=== PATIENT | female | born 1990 | race Caucasian/White ===

== ENCOUNTER 2022-03-04 10:18 | Outpatient (CLI) | payer MEDICAID, SELFPAY ==
--- NOTE | 2022-03-04 10:30 | CRLHL7_ITS ---
For Patients: As a result of the 21st Century Cures Act, medical imaging exams and procedure reports are released immediately into your electronic medical record. You may view this report before your referring provider. If you have questions, please contact your health care provider. SOLID PHASE GASTRIC EMPTYING STUDY, 03/04/2022 CLINICAL HISTORY: 32-year-old female. Food retention in stomach. Abdominal pain and nausea. Vomiting. Diffuse tenderness. Evaluate gastric emptying. TECHNIQUE: 1.1 mCi of [id number] colloid was administered orally in a meal of 4 ounces of Egg Beaters with two slices of breast with two tablespoons of strawberry jam and 4 ounces of juice or water. Images of the stomach and abdomen were obtained in the anterior and posterior projections for 4 hours. FINDINGS: TIME % ACTIVITY REMAINING 0 minutes 100.0 60 minutes 98.5 90 minutes 98.0 120 minutes 97.9 240 minutes 86.1 IMPRESSION: The half-time of gastric emptying is longer than 4 hours. This is delayed. NIDIA DUMONT M.D. Transcribed: 3:42 p.m. [email or web address]/Dictated by: Nidia Dumont MD @ 03/04/2022 2:48:00 PM (Electronically Signed)
== END 2022-03-04 10:19 | disposition home or self-care (01) ==
PROVIDERS: PCP Family Medicine
DX: K31.89 Other diseases of stomach and duodenum (principal)
CPT/HCPCS: 78264; A9541

== ENCOUNTER 2022-03-19 20:22 | Emergency (ER) | payer MEDICAID, SELFPAY ==
[2022-03-19 20:27] VITALS: BP 120/84; PULSE 95; RESP 18; TEMP 37.6; O2SAT 100; BMI 22.7
[2022-03-19 20:46] LABS: Appearance Urine Slightly Cloudy (Clear); Bilirubin Urine 1+ (Negative); Blood Urine Negative (Negative); Color Urine Yellow (Yellow); Glucose Urine Negative (Negative); Ketones Urine Negative (Negative); Leukocyte Esterase Urine Negative (Negative); Nitrite Urine Negative (Negative); Protein Urine Negative (Negative); Specific Gravity Urine >= 1.030 (1.000-1.030)
[2022-03-19 21:16] LABS: Squamous Epithelial Cell Urine Moderate (None-Few)
--- NOTE | 2022-03-19 21:24 | ED_ITS ---
HPI - General Adult General Chief complaint: Abdominal Pain Stated complaint: Possible UTI, Abdominal pain Time Seen by Provider: 03/19/22 20:27 History of Present Illness HPI narrative: This 32-year-old female comes in reporting lower abdominal pain and symptoms of dysuria that began last night. She reports increased pain and frequency when voiding urine. She states that she is seeing a wire machine operator and has been diagnosed with some gastroparesis. She does not report any fevers. She did have a good bowel movement yesterday. Related Data Home Medications Medication Instructions Recorded Confirmed ferrous sulfate 325 mg (65 mg 325 mg PO DAILY 03/13/22 03/17/22 iron) tablet pantoprazole 40 mg tablet,delayed 40 mg PO BID 03/13/22 03/17/22 release valacyclovir 500 mg tablet 500 mg PO BID 03/13/22 03/17/22 Previous Rx's Medication Instructions Recorded lisdexamfetamine 60 mg capsule 60 mg PO DAILY #30 caps 03/17/22 lisdexamfetamine 60 mg capsule 60 mg PO QAM #30 caps 03/17/22 (Vyvanse) lisdexamfetamine 60 mg capsule 60 mg PO QAM #30 caps 03/17/22 (Vyvanse) metoclopramide HCl 10 mg tablet 5 - 10 mg PO BID PRN nausea and 03/17/22 (Reglan) vomiting #30 tabs cephalexin 500 mg capsule 500 mg PO TID #15 caps 03/19/22 Allergies Allergy/AdvReac Type Severity Reaction Status Date / Time sumatriptan Allergy Intermediate Vomiting Verified 03/19/22 20:38 Review of Systems Status of ROS: Reports: 10 or more systems reviewed and unremarkable except as noted in History and below Narrative: Constitutional: No fevers, no weight gain or loss. Eyes: No discharge. No vision changes. HENT: No congestion, no sore throat, no ear pain. Cardiovascular: No chest pain, no palpitations. Respiratory: No shortness of breath, no wheezes, no cough. Gastrointestinal: No vomiting, no diarrhea. Lower abdominal pain as described above. Genitourinary: No hematuria. Dysuria symptoms including pain when voiding and increased frequency. Musculoskeletal: Normal range of motion. Skin: No rashes, no pruritis. Neurological: No dizziness, weakness, sensory change, speech change. Endo/Heme/Allergies: No bruising or bleeding. No polydipsia. Pysch: no suicidality, no anxiety, no insomnia. All other systems reviewed and are negative. [facility] Medical History (Updated 03/19/22 @ 21:36 by Olvin Moy MD) Gastroparesis History of eating disorder (2011) History of severe acute respiratory syndrome coronavirus 2 (SARS-CoV-2) disease (07/2020) Surgical History (Updated 03/10/22 @ 10:50 by Caitlyn Hodge) History of appendectomy (12/04/20) History of section (2013) History of hysterectomy for benign disease (06/22/20) History of tooth extraction (2020) Status post arthroscopy of hip (09/09/21) Family History (Updated 03/10/22 @ 10:53 by Caitlyn Hodge) Sister Depression Son Depression Mother Epilepsy Other Crohn's disease Social History (Updated 03/10/22 @ 10:53 by Caitlyn Hodge) Narrative: Does not have regular exercise regimen Engaged, [employer], 3 kids Non-smoker Rarely consumes alcohol Smoking Status: Never smoker Do you use any of these nicotine containing products: None Second hand tobacco smoke exposure: No How often do you have a drink containing alcohol: never How often do you have six or more drinks on one occasion: Never AUDIT-C Alcohol total score: 0 Non-prescribed substance use: denies use service: No Exam Narrative: Exam Narrative: Constitutional: Well-developed, well-nourished, no acute distress. HEENT: Normocephalic, atraumatic. Neck: Normal range of motion. Nontender. Supple. Heart: Regular. No murmurs. Normal rate. Intact distal pulses. Lungs: Clear to auscultation. No chest discomfort. No wheezes, rhonchi, or rales. Abdomen: Normal bowel sounds. Diffuse pain throughout the abdomen, increased in the lower abdomen. No rebound tenderness. Genitalia: Deferred. Back: No midline tenderness. Normal range of motion. Extremities: Normal range of motion. No injury. Skin: Intact. No rash. Warm. No erythema or pallor. Neurologic: No altered sensation. No weakness. Alert and oriented. Psychiatric: No suicidality. No anxiety or depression. No insomnia. Nursing notes and vitals signs are reviewed. Const: Vital Signs, click to edit/add: Vital Signs - 24 hr 03/19/22 20:27 Temperature 99.6 F Pulse Rate [Pulse Oximeter] 95 Respiratory Rate 18 Blood Pressure [Ri ght Upper Arm] 120/84 Pulse Oximetry 100 Oxygen Delivery Me thod Room Air Course Vital Signs Vital signs: Initial Vital Signs Temperature 99.6 F 03/19/22 20:27 Temperature Source Temporal Artery Scan 03/19/22 20:27 Pulse Rate 95 03/19/22 20:27 Pulse Rhythm 03/19/22 20:27 Respiratory Rate 18 03/19/22 20:27 Blood Pressure 120/84 03/19/22 20:27 Blood Pressure Mean 96 03/19/22 20:27 Pulse Oximetry 100 03/19/22 20:27 Oxygen Delivery Method 03/19/22 20:27 Vital Signs Temperature 99.6 F 03/19/22 20:27 Pulse Rate 95 03/19/22 20:27 Respiratory Rate 18 03/19/22 20:27 Blood Pressure 120/84 03/19/22 20:27 Pulse Oximetry 100 03/19/22 20:27 Oxygen Delivery Method 03/19/22 20:27 Temperature 99.6 F 03/19/22 20:27 Pulse Rate 95 03/19/22 20:27 Respiratory Rate 18 03/19/22 20:27 Blood Pressure 120/84 03/19/22 20:27 Pulse Oximetry 100 03/19/22 20:27 Oxygen Delivery Method 03/19/22 20:27 Medical Decision Making MDM Narrative Medical decision making narrative: This patient comes in with symptoms of dysuria that began last evening. Uri nalysis does show some sign of infection with white blood cell count of 5 to 10 per high-powered field. She did receive a tablet of Keflex here and a prescription for the same at her pharmacy. She does have a follow-up appointment with her doctor in a few days. Lab Data Labs: Lab Results 03/19/22 Range/Units 20:38 Urine Color Yellow (Yellow) Urine Appearance Slightly Cloudy A (Clear) Urine pH 6.0 (5.0-8.5) Ur Specific [place] >= 1.030 (1.000-1.030) Urine Protein Negative (Negative) Urine Glucose (UA) Negative (Negative) Urine Ketones Negative (Negative) Urine Blood Negative (Negative) Urine Nitrite Negative (Negative) Urine Bilirubin 1+ A (Negative) Urine Urobilinogen 1.0 (0.2-1.0) Ur Leukocyte Esterase Negative (Negative) Urine RBC 2-5 A (0-2) Urine WBC 5-10 A (0-5) Ur Squamous Epith Cells Moderate A (None-Few) Urine Bacteria None (None) Discharge Plan Discharge Clinical Impression: Urinary tract infection Patient Disposition: Home, Self-Care Condition: Unchanged Instructions: Urinary Tract Infection in Women (DC) Additional Instructions: Take medication as prescribed. Follow up with MD as scheduled or return if worsening. Prescriptions: New cephalexin 500 mg capsule 500 mg PO TID Qty: 15 0RF No Action ferrous sulfate 325 mg (65 mg iron) tablet 325 mg PO DAILY valacyclovir 500 mg tablet 500 mg PO BID pantoprazole 40 mg tablet,delayed release (DR/EC) 40 mg PO BID Label Comments: TAKE 1 TABLET BY MOUTH TWICE DAILY 30 MINUTES BEFORE BREAKFAST AND DINNER metoclopramide HCl [Reglan] 10 mg tablet 5 - 10 mg PO BID PRN (Reason: nausea and vomiting) Qty: 30 1RF lisdexamfetamine 60 mg capsule 60 mg PO DAILY Qty: 30 0RF Vyvanse 60 mg capsule 60 mg PO QAM Qty: 30 0RF Vyvanse 60 mg capsule 60 mg PO QAM Qty: 30 0RF Follow Up/Referrals: Yohan Friend MD [Primary Care Provider] - Stand Alone Forms: [facility] Info Instructions
[2022-03-19] MEDS: cephALEXin 500 MG CAPSULE PO (21:40)
== END 2022-03-19 21:47 | disposition home or self-care (01) ==
PROVIDERS: Emergency Provider Emergency Medicine Emergency Medical Services; PCP Family Medicine
DX: N39.0 Urinary tract infection, site not specified (principal)
CPT/HCPCS: 81001; 81015; 87086; 99283; 99284; A9270

== ENCOUNTER 2022-03-26 00:06 | Emergency (ER) | payer MEDICAID, SELFPAY ==
[2022-03-26 00:15] VITALS: BP 120/89; PULSE 86; RESP 18; TEMP 35.9; O2SAT 100; BMI 22.7
--- NOTE | 2022-03-26 01:27 | PC.NURSE ---
Patient put civil transportation engineer light asking to leave. Dr. Herr notified, told she can leave without discharge instructions, or wait until he is done seeing another patient. Patient decided to leave without discharge instructions.
--- NOTE | 2022-03-26 03:29 | ED_ITS ---
HPI - General Adult General Chief complaint: Chest Pain Stated complaint: Trouble breathing and chest tightness Time Seen by Provider: 03/26/22 00:10 History of Present Illness HPI narrative: Patient comes to the ER shortly after taking a dose of Pepcid and Reglan complaints of chest tightness and trouble breathing. She came in in a wheelchair and the ER was full with other serious patients. She waited about an hour and then became angry and asked to leave. She had no shortness of breath and walked out of the department. She did have an EKG done which was completely normal. She did not sign AMA paperwork. Related Data Home Medications Medication Instructions Recorded Confirmed ferrous sulfate 325 mg (65 mg 325 mg PO DAILY 03/13/22 03/17/22 iron) tablet pantoprazole 40 mg tablet,delayed 40 mg PO BID 03/13/22 03/17/22 release valacyclovir 500 mg tablet 500 mg PO BID 03/13/22 03/17/22 famotidine 40 mg tablet 40 mg PO HS 03/26/22 03/26/22 promethazine 12.5 mg tablet 12.5 mg PO .COMPLEX 03/26/22 03/26/22 Previous Rx's Medication Instructions Recorded lisdexamfetamine 60 mg capsule 60 mg PO DAILY #30 caps 03/17/22 lisdexamfetamine 60 mg capsule 60 mg PO QAM #30 caps 03/17/22 (Vyvanse) lisdexamfetamine 60 mg capsule 60 mg PO QAM #30 caps 03/17/22 (Vyvanse) metoclopramide HCl 10 mg tablet 5 - 10 mg PO BID PRN nausea and 03/17/22 (Reglan) vomiting #30 tabs cephalexin 500 mg capsule 500 mg PO TID #15 caps 03/19/22 Allergies Allergy/AdvReac Type Severity Reaction Status Date / Time sumatriptan Allergy Intermediate Vomiting Verified 03/19/22 20:38 [facility] Medical History (Updated 03/26/22 @ 03:31 by Yohan Friend MD) Anxiety with depression Attention deficit hyperactivity disorder (ADHD) Borderline personality disorder Excessive daytime sleepiness Gastroparesis Genital herpes simplex History of eating disorder (2011) History of severe acute respiratory syndrome coronavirus 2 (SARS-CoV-2) disease (07/2020) Iron deficiency anemia Migraine headache Mild intermittent asthma in adult without complication Partial seizures with aphasia Recurrent urinary tract infection Seasonal allergies Surgical History (Updated 03/10/22 @ 10:50 by Caitlyn Hodge) History of appendectomy (12/04/20) History of section (2013) History of hysterectomy for benign disease (06/22/20) History of tooth extraction (2020) Status post arthroscopy of hip (09/09/21) Family History (Updated 03/10/22 @ 10:53 by Caitlyn Hodge) Sister Depression Son Depression Mother Epilepsy Other Crohn's disease Social History (Updated 03/10/22 @ 10:53 by Caitlyn Hodge) Narrative: Does not have regular exercise regimen 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, 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[employer], 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 Non-smoker Rarely consumes alcohol Smoking Status: Never smoker Do you use any of these nicotine containing products: None Second hand tobacco smoke exposure: No How often do you have a drink containing alcohol: never How often do you have six or more drinks on one occasion: Never AUDIT-C Alcohol total score: 0 Non-prescribed substance use: denies use service: No Exam Const: Vital Signs, click to edit/add: Vital Signs - 24 hr 03/26/22 00:15 Temperature 96.6 F L Pulse Rate [Right Pulse Oximeter] 86 Respiratory Rate 18 Blood Pressure [Ri ght Upper Arm] 120/89 Pulse Oximetry 100 Course Vital Signs Vital signs: Initial Vital Signs Temperature 96.6 F L 03/26/22 00:15 Temperature Source Temporal Artery Scan 03/26/22 00:15 Pulse Rate 86 03/26/22 00:15 Respiratory Rate 18 03/26/22 00:15 Blood Pressure 120/89 03/26/22 00:15 Blood Pressure Mean 99 03/26/22 00:15 Pulse Oximetry 100 03/26/22 00:15 Vital Signs Temperature 96.6 F L 03/26/22 00:15 Pulse Rate 86 03/26/22 00:15 Respiratory Rate 18 03/26/22 00:15 Blood Pressure 120/89 03/26/22 00:15 Pulse Oximetry 100 03/26/22 00:15 Temperature 96.6 F L 03/26/22 00:15 Pulse Rate 86 03/26/22 00:15 Respiratory Rate 18 03/26/22 00:15 Blood Pressure 120/89 03/26/22 00:15 Pulse Oximetry 100 03/26/22 00:15 Discharge Plan Discharge Clinical Impression: Chest tightness Patient Disposition: Home, Self-Care Condition: Improved Prescriptions: No Action ferrous sulfate 325 mg (65 mg iron) tablet 325 mg PO DAILY valacyclovir 500 mg tablet 500 mg PO BID pantoprazole 40 mg tablet,delayed release (DR/EC) 40 mg PO BID Label Comments: TAKE 1 TABLET BY MOUTH TWICE DAILY 30 MINUTES BEFORE BREAKFAST AND DINNER metoclopramide HCl [Reglan] 10 mg tablet 5 - 10 mg PO BID PRN (Reason: nausea and vomiting) Qty: 30 1RF lisdexamfetamine 60 mg capsule 60 mg PO DAILY Qty: 30 0RF Vyvanse 60 mg capsule 60 mg PO QAM Qty: 30 0RF Vyvanse 60 mg capsule 60 mg PO QAM Qty: 30 0RF famotidine 40 mg tablet 40 mg PO HS promethazine 12.5 mg tablet 12.5 mg PO .COMPLEX Rx Instructions: 12.5 mg orally before meals and at bedtime; cephalexin 500 mg capsule 500 mg PO TID Qty: 15 0RF Follow Up/Referrals: Yohan Friend MD [Primary Care Provider] - Stand Alone Forms: [facility] Info Instructions
== END 2022-03-26 01:35 | disposition home or self-care (01) ==
PROVIDERS: Emergency Provider Family Medicine; PCP Family Medicine
DX: R07.9 Chest pain, unspecified (principal); Z53.21 Procedure and treatment not carried out due to patient leaving prior to being seen by health care provider
CPT/HCPCS: 93005; 99281

== ENCOUNTER 2022-03-26 11:41 | Outpatient (CLI) | payer MEDICAID, SELFPAY ==
--- NOTE | 2022-03-26 12:00 | CRLHL7_ITS ---
For Patients: As a result of the Century Cures Act, medical imaging exams and procedure reports are released immediately into your electronic medical record. You may view this report before your referring provider. If you have questions, please contact your health care provider. Indication: CONSTIPATION Technique: Abdomen 2 view. Comparison: None. Findings: Bowel: Bowel pattern is normal. The amount of colonic stool is within normal limits. Other: No sign of free air. No sign of soft tissue mass. No suspicious calcifications. Osseous structures are unremarkable for age. Impression: Unremarkable abdomen. MILD COLONIC STOOL BURDEN IS PRESENT. Dictated by Yohan Yoon MD @ 03/26/2022 12:20:53 PM (Electronically Signed)
[2022-03-26 12:48] LABS: Chloride* 102 mmol/L (96-114); Hemoglobin A1C* 4.91 % (0-5.6); Potassium* 3.5 mmol/L (3.6-5.1); Sodium* 140 mmol/L (135-149)
[2022-03-26 12:51] LABS: Blood Urea Nitrogen* 9 mg/dL (5-24); Carbon Dioxide* 28 mmol/L (20-32); Creatinine* 0.8 mg/dL (0.5-1.5); Estimated Glomerular Filt Rate 102 ml/min; Glucose* 84 mg/dL (60-115); Phosphorus* 4.2 mg/dL (2.5-4.5)
[2022-03-26 12:52] LABS: Calcium* 9.1 mg/dL (8.4-10.6)
[2022-03-26 13:09] LABS: Vitamin D 25 Hydroxy* 50 ng/mL (30-80)
[2022-03-27 19:25] LABS: Prealbumin 22.3 mg/dL (20.0-40.0)
[2022-03-28 12:52] LABS: Zinc, Serum/Plasma 79.3 ug/dL (60.0-120.0)
== END 2022-03-26 11:42 | disposition home or self-care (01) ==
PROVIDERS: PCP Family Medicine
DX: K59.00 Constipation, unspecified (principal); K31.84 Gastroparesis
CPT/HCPCS: 36415; 74019; 80048; 82306; 83036; 84100; 84134; 84630

== ENCOUNTER 2022-03-31 12:18 | Outpatient (CLI) | payer MEDICAID, SELFPAY | END 2022-03-31 12:19 | disposition home or self-care (01) | LOC: NFLDREF 12:20 | PROVIDERS: PCP Family Medicine; Visit Provider Family Medicine | DX: N89.8 Other specified noninflammatory disorders of vagina (principal); R39.9 Unspecified symptoms and signs involving the genitourinary system; U07.1 COVID-19 | CPT/HCPCS: 87086 ==

== ENCOUNTER 2022-04-03 09:11 | Outpatient (CLI) | payer MEDICAID, SELFPAY ==
[2022-04-03 14:22] LABS: Trichomonas No Trichomonas Seen (None Seen); Yeast No Yeast Seen (None Seen)
[2022-04-03 14:23] LABS: Clue Cells No Clue Cells Seen (None Seen)
== END 2022-04-03 09:12 | disposition home or self-care (01) ==
PROVIDERS: PCP Family Medicine; Visit Provider Family Medicine
DX: N89.8 Other specified noninflammatory disorders of vagina (principal); Z11.3 Encounter for screening for infections with a predominantly sexual mode of transmission
CPT/HCPCS: 87210; 87624; 88175

== ENCOUNTER 2022-04-17 10:27 | Outpatient (CLI) | payer MEDICAID, SELFPAY ==
[2022-04-17 10:42] VITALS: BP 110/71; PULSE 69; RESP 16; TEMP 37.2; O2SAT 97
--- NOTE | 2022-04-17 11:00 | CRLHL7_ITS ---
For Patients: As a result of the Century Cures Act, medical imaging exams and procedure reports are released immediately into your electronic medical record. You may view this report before your referring provider. If you have questions, please contact your health care provider. INDICATION: Gastroparesis, PICC placement and brachial vein. TECHNIQUE: Ultrasound for PICC placement. COMPARISON: None. FINDINGS/IMPRESSION: Ultrasound images demonstrate a non compressed vein measuring 3.5 mm presumably brachial vein. Single images of right brachial cephalic and IJ veins unremarkable. Dictated by Igor Lanza MD @ 04/17/2022 1:46:25 PM (Electronically Signed)
--- NOTE | 2022-04-17 11:05 | CRLHL7_ITS ---
For Patients: As a result of the Century Cures Act, medical imaging exams and procedure reports are released immediately into your electronic medical record. You may view this report before your referring provider. If you have questions, please contact your health care provider. Indication: PICC line placement confirmation Comparison: None available. Technique: Single AP view chest Findings: Initial image provided demonstrates PICC line within the left IJ central venous catheter, after 2nd readjustment image it is seen in proper position at the cavoatrial junction. There is no focal consolidation, effusion, or pneumothorax. The cardiomediastinal silhouette is within normal limits. The bony thorax is grossly intact. Impression: Demonstration of satisfactory final positioning of PICC line on the right side at the cavoatrial junction after repositioning from initial placement. Dictated by Omid Najera MD @ 04/17/2022 12:18:53 PM (Electronically Signed)
[2022-04-17 11:40] VITALS: BP 104/70; PULSE 71; RESP 16; O2SAT 97
== END 2022-04-17 12:24 | disposition home or self-care (01) ==
PROVIDERS: PCP Family Medicine; Visit Provider Family Medicine
DX: K31.84 Gastroparesis (principal)
CPT/HCPCS: 36573; 71045; C1751

== ENCOUNTER 2022-07-07 12:20 | Outpatient (CLI) | payer MEDICAID, SELFPAY ==
[2022-07-08 08:52] LABS: Albumin* 4.3 g/dL (3.3-5.0); Chloride* 107 mmol/L (96-114); Potassium* 4.2 mmol/L (3.6-5.1); Sodium* 140 mmol/L (135-149)
[2022-07-08 08:55] LABS: Alanine Aminotransferase* 33 U/L (4-35); Alkaline Phosphatase* 98 U/L (40-150); Aspartate Amino Transferase* 31 U/L (12-35); Bilirubin Total* 0.4 mg/dL (0.1-1.5); Blood Urea Nitrogen* 13 mg/dL (5-24); Carbon Dioxide* 23 mmol/L (20-32); Creatinine* 0.6 mg/dL (0.5-1.5); Estimated Glomerular Filt Rate 124 ml/min; Glucose* 73 mg/dL (60-115)
[2022-07-08 08:56] LABS: Calcium* 9.2 mg/dL (8.4-10.6)
[2022-07-09 11:03] LABS: Estradiol Premenol Female 59 pg/mL
== END 2022-07-07 12:21 | disposition home or self-care (01) ==
PROVIDERS: PCP Family Medicine; Visit Provider Family Medicine
DX: R25.1 Tremor, unspecified (principal); N95.1 Menopausal and female climacteric states
CPT/HCPCS: 80053; 82670; 84443

== ENCOUNTER 2022-08-08 17:13 | Outpatient (CLI) | payer MEDICAID, SELFPAY | END 2022-08-08 17:14 | disposition home or self-care (01) | LOC: AMB 08-12 10:18 | PROVIDERS: PCP Family Medicine; Visit Provider Emergency Medicine Emergency Medical Services | DX: R41.82 Altered mental status, unspecified (principal); R25.1 Tremor, unspecified; R42 Dizziness and giddiness; H53.8 Other visual disturbances | CPT/HCPCS: A0425; A0427 ==

== ENCOUNTER 2022-08-08 17:37 | Emergency (ER) | payer MEDICAID, SELFPAY ==
[2022-08-08] VITALS (20 sets, daily range): BP systolic 121–136; BP diastolic 65–86; PULSE 63–114; RESP 20; TEMP 36.7; O2SAT 82–100; BMI 23.0
--- NOTE | 2022-08-08 17:38 | CRLHL7_ITS ---
For Patients: As a result of the Century Cures Act, medical imaging exams and procedure reports are released immediately into your electronic medical record. You may view this report before your referring provider. If you have questions, please contact your health care provider. CT HEAD DATE: 08/08/2022 CLINICAL HISTORY: Patient with arm twitching and difficulty speaking. TECHNIQUE: Standard CT scanning of the head was performed. COMPARISON: 01/21/2022. FINDINGS: There is no intracranial hemorrhage. The galvan matter-white matter differentiation is intact. The size of the ventricular system is normal for age. There is no mass effect or midline shift. The calvarium is unremarkable. The orbits are unremarkable. The paranasal sinuses are unremarkable. The mastoid air cells are unremarkable. The soft tissues are unremarkable. IMPRESSION: Normal head CT. Please note that all CT scans at this facility use dose modulation, iterative reconstruction, and/or weight-based dosing when appropriate to reduce radiation dose to as low as reasonably achievable. Dictated by: Adwoa Mora MD @ 08/08/2022 18:00:56 (Electronically Signed)
--- NOTE | 2022-08-08 18:00 | ED.GENADULT ---
HPI - General Adult General Time Seen by Provider: 18:00 Date Seen: 08/08/22 Chief complaint: Neuro Symptoms/Altered Deficit Stated complaint: CVA / Stroke Time Seen by Provider: 08/08/22 17:44 History of Present Illness HPI narrative: Patient is a 32-year-old female brought in by EMS for concern of neurologic changes. They did call a stroke code in the field given patient's presenting complaints. 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 She states her right arm just started shaking. She has been diagnosed with tremors before but states that this was just lasting longer and more out of control. She also stated she was having difficulty finding words or difficulty speaking to EMS. When I am talking to her she is stuttering some is able to communicate with me fully. She denies any recent cough or cold symptoms, no COVID in the last few months. Denies any numbness tingling anywhere. Has had no trauma, has not hit her head, no falls. She is on enteral feedings, has gastroparesis. She states they never did necessarily figure out the cause of her gastroparesis, maybe her vagus nerve. She is followed with [facility] for this. She states she has also had a history of autoimmune gastritis. Related Data Home Medications Medication Instructions Recorded Confirmed ferrous sulfate 325 mg (65 mg 325 mg PO DAILY 03/13/22 08/07/22 iron) tablet valacyclovir 500 mg tablet 500 mg PO BID 03/13/22 08/07/22 famotidine 40 mg tablet 40 mg PO HS 03/26/22 08/07/22 Previous Rx's Medication Instructions Recorded ondansetron 8 mg disintegrating 8 mg PO Q8H PRN nausea and 06/11/22 tablet vomiting #30 tabs trazodone 50 mg tablet 50 mg PO QHS #90 tabs 06/11/22 mupirocin 2 % topical ointment 1 applic topical BID #22 grams 07/17/22 estradiol 0.5 mg tablet 0.5 mg PO QDAY #30 tabs 07/31/22 lisdexamfetamine 60 mg capsule 60 mg PO DAILY #30 caps 08/04/22 lisdexamfetamine 60 mg capsule 60 mg PO QAM #30 caps 08/04/22 (Vyvanse) lisdexamfetamine 60 mg capsule 60 mg PO QAM #30 caps 08/04/22 (Vyvanse) Allergies Allergy/AdvReac Type Severity Reaction Status Date / Time sumatriptan Allergy Intermediate Vomiting Verified 08/07/22 10:50 PFSH PFS Medical History (Updated 08/08/22 @ 19:34 by Maxine Emmanuel MD) Anxiety with depression Attention deficit hyperactivity disorder (ADHD) Borderline personality disorder Excessive daytime sleepiness Gastroparesis Genital herpes simplex History of eating disorder (2011) History of severe acute respiratory syndrome coronavirus 2 (SARS-CoV-2) disease (07/2020) Hot flashes due to menopause Insomnia Iron deficiency anemia Migraine headache Mild intermittent asthma in adult without complication Partial seizures with aphasia Recurrent urinary tract infection Seasonal allergies Surgical History (Updated 07/28/22 @ 18:57 by Yohan Friend MD) Gastrointestinal stromal tumor (GIST) of jejunum History of appendectomy (12/04/20) History of section (2013) History of hysterectomy for benign disease (06/22/20) History of tooth extraction (2020) Status post arthroscopy of hip (09/09/21) Family History (Updated 03/10/22 @ 10:53 by Caitlyn Hodge) Sister Depression Son Depression Mother Epilepsy Other Crohn's disease Social History (Updated 03/10/22 @ 10:53 by Caitlyn Hodge) Narrative: Does not have regular exercise regimen 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, 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[employer], 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1 F Pulse Rate 63 Pulse Rate [Right Pulse Oximeter] 103 H Respiratory Rate 20 Blood Pressure Blood Pressure [Le ft Upper Arm] 124/86 Pulse Oximetry 100 100 87 L Oxygen Delivery Me thod Room Air 08/08/22 17:45 12/23/22 17:46 08/08/22 17:47 Temperature Pulse Rate 94 106 H 102 H Pulse Rate [Right Pulse Oximeter] Respiratory Rate Blood Pressure 124/86 128/86 Blood Pressure [Le ft Upper Arm] Pulse Oximetry 100 82 L 100 Oxygen Delivery Me thod 08/08/22 18:00 08/08/22 18:01 Temperature Pulse Rate 97 95 Pulse Rate [Right Pulse Oximeter] Respiratory Rate Blood Pressure 128/74 Blood Pressure [Le ft Upper Arm] Pulse Oximetry 100 100 Oxygen Delivery Me thod Course Reevaluation(s) Reevaluation #1: Patient is seen again after her CT, lab is there to draw her blood. When I 1st come in I note decrease tremor of her right arm but seems to increase when I come in. It is more of the upper arm that moving. She at times has normal voice but then her voice goes into more of a stuttering type pattern at times. She can say the words but will stutter through some of him and repeat some of them. She asked me what is wrong with her. I have reviewed with her that I do think anxiety could be at play here. We reviewed that the radiologist certainly has to read the head CT but that I have looked at this preliminarily and I do not see any acute pathology. She is cautioned however that the radiologist needs to review this. On her labs, they will be collected, need to review these and make sure there is nothing like electrolyte abnormalities. Will continue to watch her here, guide therapy accordingly. Tried to reassure her at this point. Time: 18:00 Reevaluation #2: Patient is seen, head CT report given to her which is normal. Reviewed her lab results. There is nothing concerning on the lab results. We discussed her symptoms. She is no longer having any symptoms with her right arm. She states it felt like it was cold when this happened, denies any trauma. [place] like her fingers were turning purple. We did discuss things like complex regional pain syndrome/reflex sympathetic dystrophy. These are all peripheral neurologic issues that we do not have a great understanding for. At this time we are going to allow her to discharge to home. Her arm is asymptomatic at this time. On questioning, she states she does not have a seizure disorder and was not diagnosed with seizures. She states Dr. Friend already put in a consult referral for Neurology. While here, she was reported to ambulate to the bathroom without any difficulty per nursing staff. Time: 19:31 Vital Signs Vital signs: Initial Vital Signs Pulse Rate 63 08/08/22 17:44 Pulse Oximetry 87 L 08/08/22 17:44 Vital Signs Pulse Rate 63 08/08/22 17:44 Pulse Oximetry 87 L 08/08/22 17:44 Temperature 98.1 F 08/08/22 17:47 Pulse Rate 95 08/08/22 18:01 Respiratory Rate 20 08/08/22 17:47 Blood Pressure 128/74 08/08/22 18:01 Pulse Oximetry 100 08/08/22 18:01 Oxygen Delivery Method 08/08/22 17:47 Medical Decision Making Lab Data Lab results reviewed: Yes I reviewed the patient's lab results Labs: Lab Results 08/08/22 08/08/22 08/08/22 Range/Units 18:05 18:05 18:05 WBC 5.73 (4.50-11.00) K/uL RBC 4.66 (4.00-5.20) m/uL Hgb 13.5 (12.0-16.0) gm/dL Hct 39.5 (33.0-51.0) % MCV 85 (80-100) fL MCH 29 (26-34) pg MCHC 34 (32-36) gm/dL RDW Coeff of Li 12.3 (11.5-15.5) % Plt Count 230 (140-440) K/uL Neut % (Auto) 64.8 (42.0-72.0) % Lymph % (Auto) 25.3 (20-44) % Sutter % (Auto) 7.2 (0.0-11.0) % Eos % (Auto) 2.3 (0.0-7.0) % Baso % (Auto) 0.2 (0.0-3.0) % Neut # (Auto) 3.72 (1.7-7.0) K/uL Lymph # (Auto) 1.45 (0.90-2.90) K/uL Sutter # (Auto) 0.40 (0.00-0.90) K/UL Eos # (Auto) 0.13 (0.00-0.50) K/uL Baso # (Auto) 0.01 (0.00-0.30) K/uL VBG pH 7.358 (7.32-7.43) VBG pCO2 54 H (40-50) mmHG VBG pO2 27.3 (25-47) mmHG VBG HCO3 30 H (21-28) mmol/L Sodium 140 (135-149) mmol/L Potassium 3.6 (3.6-5.1) mmol/L Chloride 105 (96-114) mmol/L Carbon Dioxide 30 (20-32) mmol/L BUN 16 (5-24) mg/dL Creatinine 0.6 (0.5-1.5) mg/dL Estimated Creat Clear 113.41 Estimated GFR 124 ml/min Glucose 97 (60-115) mg/dL Lactate 0.9 (0.5-1.9) mmol/L Calcium 8.7 (8.4-10.6) mg/dL Magnesium 2.0 (1.5-2.6) mg/dL Total Bilirubin 0.3 (0.1-1.5) mg/dL AST 26 (12-35) U/L ALT 24 (4-35) U/L Alkaline Phosphatase 89 (40-150) U/L C-Reactive Protein < 0.5 L (0.5-1.0) mg/dL Total Protein 7.4 (6.0-8.3) g/dL Albumin 4.5 (3.3-5.0) g/dL Ethyl Alcohol < 0.01 L (0.01-0.03) % Imaging Data CT scan - head: Attestation: I have reviewed the pertinent imaging results. Radiologist's impression: Patient: LIDIA SAAVEDRA Facility:?[facility] Patient ID:?[id number] Site Patient ID:?[id number]. Site :?02/21/1956 Study:?CT Abdomen/Pelvis W/O-08/08/2022 5:29:11 PM Ordering Physician:Zia Goodman Final Report: INDICATION: Left flank pain wrapping abdomen. History kidney stones. TECHNIQUE: CT abdomen and pelvis without contrast. COMPARISON: None. FINDINGS: Limited evaluation of the intra-abdominal solid organs without IV contrast. Lower chest: Mild bibasilar atelectasis. Mitral annular calcifications. Liver: Normal in size and attenuation. No suspicious masses. Gallbladder and bile ducts: No stones or inflammation. No biliary dilatation. Pancreas: Unremarkable. No mass or inflammation. Spleen: Normal in size. No masses. Adrenal glands: Normal in size. No nodules. Kidneys: Normal in size. No suspicious masses, stones, or hydronephrosis. 3.7 centimeter simple appearing cyst in the left lower pole. GI tract: Postsurgical changes sleeve gastrectomy. Scattered colonic diverticulosis without evidence of diverticulitis. Appendix is within normal limits. No bowel obstruction. Vasculature: Abdominal aorta is normal in caliber. Scattered calcific atherosclerosis. Lymph nodes: No lymphadenopathy. Peritoneum/Abdominal Wall: Rectus diastasis. No sign of mass or infiltration. No free air or significant free fluid. Pelvis: Left adnexal cystic lesion measuring 3.8 centimeters in diameter. Probable fibroid, exophytic at the lower uterine segment. Bones: History mineralization of visualized bones. Multilevel degenerative changes of the spine. Superior lumbar fusion changes. IMPRESSION: No acute intra-abdominal process identified. Specifically, no kidney stones or hydronephrosis. The adnexal cysts measuring up to 3.8 centimeters in diameter. Recommend nonemergent pelvic ultrasound for further evaluation. Please note that all CT scans at this facility use dose modulation, iterative reconstruction, and/or weight-based dosing when appropriate to reduce radiation dose to as low as reasonably achievable. Dictated by Shantal Motley MD @ 08/08/2022 5:54:59 PM (Electronic Signature) Critical Care Time Critical Care Time Critical Care Time: No Discharge Plan Discharge Clinical Impression: Tremor Patient Disposition: Home, Self-Care Condition: Stable Instructions: Tremors (ED) Additional Instructions: Schedule a follow-up appoint with Dr. Friend. Await neurology referral as you state has been requested. If you have further concerns, feel your symptoms are worsening, always do recommend seeking re-evaluation. Prescriptions: No Action ferrous sulfate 325 mg (65 mg iron) tablet 325 mg PO DAILY valacyclovir 500 mg tablet 500 mg PO BID ondansetron 8 mg tablet,disintegrating 8 mg PO Q8H PRN (Reason: nausea and vomiting) Qty: 30 2RF mupirocin 2 % ointment 1 applic topical BID Qty: 22 2RF famotidine 40 mg tablet 40 mg PO HS trazodone 50 mg tablet 50 mg PO QHS Qty: 90 1RF estradiol 0.5 mg tablet 0.5 mg PO QDAY Qty: 30 5RF Vyvanse 60 mg capsule 60 mg PO QAM Qty: 30 0RF lisdexamfetamine 60 mg capsule 60 mg PO DAILY Qty: 30 0RF Vyvanse 60 mg capsule 60 mg PO QAM Qty: 30 0RF Follow Up/Referrals: Yohan Friend MD [Primary Care Provider] - [facility]one [facility] Inst[facility]
[2022-08-08 18:10] LABS: HCO3 VBG 30 mmol/L (21-28); Lactate* 0.9 mmol/L (0.5-1.9); PCO2 VBG 54 mmHG (40-50); PO2 VBG 27.3 mmHG (25-47); pH VBG 7.358 (7.32-7.43)
[2022-08-08 18:11] LABS: Basophils Absolute Auto 0.01 K/uL (0.00-0.30); Basophils Percent Auto 0.2 % (0.0-3.0); Eosinophils Absolute Auto 0.13 K/uL (0.00-0.50); Eosinophils Percent Auto 2.3 % (0.0-7.0); Hematocrit 39.5 % (33.0-51.0); Hemoglobin* 13.5 gm/dL (12.0-16.0); Immature Granulocytes Abs Auto 0.01 K/uL (0.00-0.30); Immature Granulocytes Pct Auto 0.2 %; Lymphocytes Absolute Auto 1.45 K/uL (0.90-2.90); Lymphocytes Percent Auto 25.3 % (20-44); Mean Corpuscular HGB Conc 34 gm/dL (32-36); Mean Corpuscular Hemoglobin 29 pg (26-34); Mean Corpuscular Volume 85 fL (80-100); Monocytes Percent Auto 7.2 % (0.0-11.0); Neutrophils Absolute Auto 3.72 K/uL (1.7-7.0); Neutrophils Percent Auto 64.8 % (42.0-72.0); Platelet Count* 230 K/uL (140-440); RDW Coefficient of Variation % 12.3 % (11.5-15.5); Red Blood Count 4.66 m/uL (4.00-5.20); White Blood Count* 5.73 K/uL (4.50-11.00)
[2022-08-08 18:14] LABS: Slide Review Reflex No
[2022-08-08 18:26] LABS: Albumin* 4.5 g/dL (3.3-5.0); Chloride* 105 mmol/L (96-114)
[2022-08-08 18:27] LABS: Potassium* 3.6 mmol/L (3.6-5.1); Sodium* 140 mmol/L (135-149)
[2022-08-08 18:29] LABS: Alkaline Phosphatase* 89 U/L (40-150); Aspartate Amino Transferase* 26 U/L (12-35); Bilirubin Total* 0.3 mg/dL (0.1-1.5); Carbon Dioxide* 30 mmol/L (20-32); Creatinine* 0.6 mg/dL (0.5-1.5); Est. Creatinine Clearance* 113.41; Estimated Glomerular Filt Rate 124 ml/min; Total Protein* 7.4 g/dL (6.0-8.3)
[2022-08-08 18:30] LABS: Alanine Aminotransferase* 24 U/L (4-35); Blood Urea Nitrogen* 16 mg/dL (5-24); Calcium* 8.7 mg/dL (8.4-10.6); Glucose* 97 mg/dL (60-115)
[2022-08-08 18:37] LABS: C Reactive Protein* < 0.5 mg/dL (0.5-1.0); Ethanol* < 0.01 % (0.01-0.03)
== END 2022-08-08 19:42 | disposition home or self-care (01) ==
PROVIDERS: Emergency Provider Family Medicine; PCP Family Medicine
DX: R25.1 Tremor, unspecified (principal)
CPT/HCPCS: 36415; 70450; 80053; 82077; 82803; 83605; 83735; 85025; 86140; 94761; 99283; 99284

== ENCOUNTER 2022-11-03 16:41 | Outpatient (CLI) | payer MEDICAID, SELFPAY | END 2022-11-03 16:42 | disposition home or self-care (01) | PROVIDERS: PCP Family Medicine; Visit Provider Family Medicine | DX: D50.9 Iron deficiency anemia, unspecified (principal) | CPT/HCPCS: 80053; 82550; 83735; 85025; 85027; 85651; 86039; 86140 ==